=== PATIENT | male | born 1975 | race African-American/Black ===

== ENCOUNTER 2019-08-05 12:52 | Emergency (ER) | payer OTHER ==
[~2019-08-05] VITALS: Ht 190.5 cm; Wt 96.0 kg
--- NOTE | 2019-08-05 13:28 | PHYS DOC ---
Adult General Chief Complaint Chief Complaint: HEADACHE HPI HPI Patient is a 44 year old male who presents to the ER with complaint of posterior head pain on the left side, dizziness, altered sensation around the left eye region. His symptoms initially started on July 23 when he felt a "pop in the back of my head." Since that time he hasn't experienced pain in the back of his head and intermittent dizziness. He was initially seen and evaluated at [facility] where CT scan of his head which was negative and cardiac workup including labs and EKG all of which were unremarkable. His symptoms were continued to possible hypoglycemia as the patient is diabetic. He was discharge and ultimately sent home. He had another episode on August 01 of presumed chest pain according to medical records were he was seen again at [facility] and evaluated and sent home. He saw his primary care physician on Thursday and again on for ongoing abnormal symptoms including pain in the back of his head, intermittent dizziness, weakness in the bilateral lower extremities. He has not seen a neurologist. He denies visual disturbance. 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 Review of Systems Review of Systems All other ROS is negative unless otherwise stated in HPI Current Medications Current Medications Current Medications Medications (Trade) Dose Ordered Sig/Germania Start Time Stop Time Status Last Admin Dose Admin Info (CONTRAST GIVEN -- Rx MONITORING) 1 each PRN DAILY PRN 08/05/19 14:15 08/07/19 14:14 Iohexol (Omnipaque 350 Mg/ml) 75 ml 1X ONCE 08/05/19 14:00 08/05/19 14:02 DC 08/05/19 14:10 75 ML Meclizine HCl (Antivert) 25 mg 1X ONCE 08/05/19 13:30 08/05/19 13:31 DC 08/05/19 14:25 25 MG Sodium Chloride 1,000 ml @ 1,000 mls/hr 1X ONCE 08/05/19 13:30 08/05/19 14:29 DC 08/05/19 14:26 1,000 MLS/HR Allergies Allergies Allergies Coded Allergies Type Severity Reaction Last Updated Verified No Known Drug Allergies 08/05/19 No Physical Exam Physical Exam See above Constitutional: Well developed, well nourished, no acute distress, non-toxic appearance. [] HENT: Normocephalic, atraumatic, bilateral external ears normal, oropharynx moist, no oral exudates, nose normal. [] Eyes: PERRLA, EOMI, conjunctiva normal, no discharge. [] Neck: Normal range of motion, no tenderness, supple, no stridor. [] Cardiovascular:Heart rate regular rhythm, no murmur [] Lungs & Thorax: Bilateral breath sounds clear to auscultation [] Abdomen: Bowel sounds normal, soft, no tenderness, no masses, no pulsatile masses. [] Skin: Warm, dry, no erythema, no rash. [] Back: No tenderness, no CVA tenderness. [] Extremities: No tenderness, no cyanosis, no clubbing, ROM intact, no edema. [] Neurologic: Alert and oriented X 3, normal sensory. No focal neurologic deficits except for left finger to nose is slightly off Psychologic: Affect normal, judgement normal, mood normal. [] Current Patient Data Vital Signs Vital Signs Date Time Temp Pulse Resp B/P (MAP) Pulse Ox O2 Delivery O2 Flow Rate FiO2 08/05/19 13:04 98.2 87 18 143/95 (111) 98 Room Air 98.2 Lab Values Laboratory Tests Test 08/05/19 13:30 08/05/19 15:16 White Blood Count 7.8 x10^3/uL (4.0-11.0) Red Blood Count 6.48 x10^6/uL (4.30-5.70) H Hemoglobin 13.5 g/dL (13.0-17.5) Hematocrit 42.1 % (39.0-53.0) Mean Corpuscular Volume 65 fL (79-100) L Mean Corpuscular Hemoglobin 21 pg (25-35) L Mean Corpuscular Hemoglobin Concent 32 g/dL (31-37) Red Cell Distribution Width 16.7 % (11.5-14.5) H Platelet Count 214 x10^3/uL (140-400) Neutrophils (%) (Auto) 62 % (31-73) Lymphocytes (%) (Auto) 29 % (24-48) Monocytes (%) (Auto) 8 % (0-9) Eosinophils (%) (Auto) 1 % (0-3) Basophils (%) (Auto) 1 % (0-3) Neutrophils # (Auto) 4.8 x10^3/uL (1.8-7.7) Lymphocytes # (Auto) 2.2 x10^3/uL (1.0-4.8) Monocytes # (Auto) 0.6 x10^3/uL (0.0-1.1) Eosinophils # (Auto) 0.0 x10^3/uL (0.0-0.7) Basophils # (Auto) 0.1 x10^3/uL (0.0-0.2) Platelet Estimate Adequate (ADEQUATE) Hypochromasia Marked Poikilocytosis Slight Anisocytosis Slight Microcytosis Marked Ovalocytes Few Sodium Level 139 mmol/L (136-145) Potassium Level 4.3 mmol/L (3.5-5.1) Chloride Level 102 mmol/L (98-107) Carbon Dioxide Level 28 mmol/L (21-32) Anion Gap 9 (6-14) Blood Urea Nitrogen 12 mg/dL (8-26) Creatinine 1.3 mg/dL (0.7-1.3) Estimated GFR (Cockcroft-Gault) 71.9 Glucose Level 122 mg/dL (70-99) H Calcium Level 9.7 mg/dL (8.5-10.1) Troponin I Quantitative < 0.017 ng/mL (0.000-0.055) Thyroid Stimulating Hormone (TSH) 1.259 uIU/mL (0.358-3.74) Urine Opiates Screen Neg (NEG) Urine Methadone Screen Neg (NEG) Urine Barbiturates Neg (NEG) Urine Phencyclidine Screen Neg (NEG) Urine Amphetamine/Methamphetamine Neg (NEG) Urine Benzodiazepines Screen Neg (NEG) Urine Cocaine Screen Neg (NEG) Urine Cannabinoids Screen Neg (NEG) Urine Ethyl Alcohol Neg (NEG) Laboratory Tests 08/05/19 13:30 Laboratory Tests 08/05/19 13:30 EKG EKG [] Radiology/Procedures Radiology/Procedures PROCEDURE: CT ANGIOGRAPHY HEAD AND NECK CLINICAL HISTORY: Posterior head pain and dizziness COMPARISON: CT head 08/02/2019. TECHNIQUE: CT angiogram of the head and neck was performed following the administration of IV contrast Multiplanar reconstructed images were obtained including 3D reconstructed images performed on an independent work station. Stenosis if present in the carotid arteries were measured using NASCET criteria. PQRS compliance statement - One or more of the following individualized dose reduction techniques were utilized for this study: 1. Automated exposure control 2. Adjustment of the mA and/or kV according to patient size 3. Use of iterative reconstruction technique FINDINGS: CTA of the intracranial circulation reveals normal appearing distal internal carotid arteries including the distal cervical, petrous, cavernous and supraclinoid portions. The anterior cerebral arteries are well visualized and without evidence of stenosis or occlusion. The middle cerebral arteries are well visualized and without evidence of stenosis or occlusion. The posterior cerebral arteries are well visualized and without evidence of stenosis or occlusion. The vertebral basilar system is normal with no evidence of stenosis or occlusion. In the neck, the origins of the great vessels are unremarkable. The common carotid arteries, bilaterally are normal with no evidence of significant stenosis or occlusion. The internal carotid arteries are normal bilaterally with no evidence of stenosis. The vertebral arteries in the neck are well visualized bilaterally and unremarkable. A 3.7 x 2.1 cm left thyroid nodule is seen. IMPRESSION: 1. No evidence for high-grade stenosis or occlusion of the intracranial circulation. 2. No evidence for high-grade stenosis or occlusion of the extracranial carotid or vertebral arteries. 3. A 3.7 x 2.1 cm left thyroid nodule seen. Recommend further evaluation with thyroid ultrasound if not previously performed.[] EXAM: MRI Brain without IV contrast INDICATION: Dizziness and posterior head pain. TECHNIQUE: Sagittal and axial T1-w and axial T2-w, FLAIR, GRE, coronal T2-w, and diffusion-w images of the brain with ADC maps without IV contrast. COMPARISON: CT head without IV contrast 07/23/2019 FINDINGS: BRAIN PARENCHYMA: No evidence of hyperacute, acute, or early subacute infarction. Scattered T2 and FLAIR signal hyperintensities in the subcortical white matter of the complete frontal lobes are nonspecific but compatible with chronic ischemic microvascular change. VENTRICLES & EXTRA-AXIAL SPACES: Ventricles are within normal limits. Basilar cisterns are patent. No abnormal extra-axial fluid or mass. VESSELS: Normal signal voids in the larger intracranial vessels. ORBITS: Orbital contents are unremarkable. SINUSES: Paranasal sinuses are clear. Tympanic cavities and mastoid air cells are clear. OSSEOUS & SOFT TISSUES: Marrow signal is within normal limits. IMPRESSION: No acute intracranial pathology. Course & Med Decision Making Course & Med Decision Making Pertinent Labs and Imaging studies reviewed. (See chart for details) This patient is seen for pain in the posterior aspect of his head along with abnormal sensation about the left orbit. He's had a CT scan performed on ebruary 8 and workup 2 on [address] With [address] angiogram of the patient's head and neck and repeat labs today along with EKG. 1459: Patient's CT scan of his head and neck are unremarkable for pathology; however it did reveal thyroid nodule. His labs are unremarkable. I spoke with her neurologist, Dr. Mc who recommends an MRI without contrast and follow up in clinic if unremarkable. 1636: MRI negative. Will d/c with referral to neuro. Patient also informed of thyroid nodule and need to f/u. Dragon Disclaimer Elainaon Disclaimer This electronic medical record was generated, in whole or in part, using a voice recognition dictation system. Departure Departure Impression: Primary Impression: Dizziness Additional Impressions: Headache Thyroid nodule Disposition: HOME, SELF-CARE Condition: STABLE Referrals: ELLE [facility] MD Call for follow up appointment today or Thursday Patient Instructions: Dizziness Scripts Meclizine Hcl (MECLIZINE HCL) 25 Mg Tablet 1 TAB PO TID for dizziness, #20 TAB Prov: IHSAN MCDONALD DO 08/05/19 Prednisone (PREDNISONE) 50 Mg Tablet 1 TAB PO DAILY, #5 TAB Prov: IHSAN MCDONALD DO 08/05/19 NIHSS Stroke Scale NIH Stroke Scale: NIH Stroke Scale Response (Comments) Value Level of Consciousness: 0 Alert/Responsive 0 LOC Questions: 0 Answers both correctly 0 LOC Commands: 0 Performs both tasks 0 Best Gaze: 0 Normal 0 Visual: 0 No visual loss 0 Facial Palsy: 0 Normal, symmetrical 0 Motor - Left Arm 0 No drift 0 Motor - Right Arm 0 No drift 0 Motor - Left Leg 0 No drift 0 Motor: Right Leg 0 No drift 0 Limb Ataxia: 1 One limb (left upper extremity) 1 Sensory: 0 No loss 0 Best Language: 0 Normal 0 Dysathria: 0 Normal 0 Extinction and Inattention: 0 Normal 0 Total 1 Problem Qualifiers IHSAN MCDONALD DO Aug 05, 2019 13:28
[2019-08-05] MEDS ORDERED: MECLIZINE HCL 12.5 MG TABLET. PO ONE (13:30)
[2019-08-05] MEDS ORDERED: IV NORMAL SALINE 1000ML BAG 1,000 ML IV ONE (13:30)
[2019-08-05 13:43] LABS: BASO # 0.1 x10^3/uL (0.0-0.2); BASO % 1 % (0-3); EOS % 1 % (0-3); HEMATOCRIT 42.1 % (39.0-53.0); HEMOGLOBIN 13.5 g/dL (13.0-17.5); LYMPH # 2.2 x10^3/uL (1.0-4.8); LYMPH % 29 % (24-48); MEAN CORPUSCULAR HEMOGLOBIN 21 pg (25-35); MEAN CORPUSCULAR HGB CONC 32 g/dL (31-37); MEAN CORPUSCULAR VOLUME 65 fL (79-100); MONO # 0.6 x10^3/uL (0.0-1.1); MONO % 8 % (0-9); NEUT # 4.8 x10^3/uL (1.8-7.7); NEUT % 62 % (31-73); PLATELET COUNT 214 x10^3/uL (140-400); RED BLOOD COUNT 6.48 x10^6/uL (4.30-5.70); RED CELL DISTRIBUTION WIDTH 16.7 % (11.5-14.5); WHITE BLOOD COUNT 7.8 x10^3/uL (4.0-11.0)
[2019-08-05 13:56] LABS: CALCIUM 9.7 mg/dL (8.5-10.1); CREATININE 1.3 mg/dL (0.7-1.3); GFR 71.9; POTASSIUM 4.3 mmol/L (3.5-5.1)
[2019-08-05] MEDS ORDERED: IOHEXOL 350 MG/ML 100 ML VIAL. IV ONE (14:00)
[2019-08-05] MEDS ORDERED: CONTRAST GIVEN. MC PRN (14:15)
[2019-08-05 14:18] LABS: PLT ESTIMATE ADEQUATE (ADEQUATE)
[2019-08-05 14:19] LABS: ANISOCYTOSIS SLIGHT; HYPOCHROMIA MARKED; MICROCYTOSIS MARKED; OVALOCYTES FEW; POIKILOCYTOSIS SLIGHT
--- NOTE | 2019-08-05 14:43 | RAD ---
CLINICAL HISTORY: Posterior head pain and dizziness COMPARISON: CT head 08/02/2019. TECHNIQUE: CT angiogram of the head and neck was performed following the administration of IV contrast Multiplanar reconstructed images were obtained including 3D reconstructed images performed on an independent work station. Stenosis if present in the carotid arteries were measured using NASCET criteria. PQRS compliance statement - One or more of the following individualized dose reduction techniques were utilized for this study: 1. Automated exposure control 2. Adjustment of the mA and/or kV according to patient size 3. Use of iterative reconstruction technique FINDINGS: CTA of the intracranial circulation reveals normal appearing distal internal carotid arteries including the distal cervical, petrous, cavernous and supraclinoid portions. The anterior cerebral arteries are well visualized and without evidence of stenosis or occlusion. The middle cerebral arteries are well visualized and without evidence of stenosis or occlusion. The posterior cerebral arteries are well visualized and without evidence of stenosis or occlusion. The vertebral basilar system is normal with no evidence of stenosis or occlusion. In the neck, the origins of the great vessels are unremarkable. The common carotid arteries, bilaterally are normal with no evidence of significant stenosis or occlusion. The internal carotid arteries are normal bilaterally with no evidence of stenosis. The vertebral arteries in the neck are well visualized bilaterally and unremarkable. A 3.7 x 2.1 cm left thyroid nodule is seen. IMPRESSION: 1. No evidence for high-grade stenosis or occlusion of the intracranial circulation. 2. No evidence for high-grade stenosis or occlusion of the extracranial carotid or vertebral arteries. 3. A 3.7 x 2.1 cm left thyroid nodule seen. Recommend further evaluation with thyroid ultrasound if not previously performed. Electronically signed by: Pop Viera MD (08/05/2019 2:40 PM) [facility]
[2019-08-05 15:47] LABS: BARBITURATES NEG (NEG); BENZODIAZEPINES NEG (NEG); CANNABINOIDS NEG (NEG); COCAINE NEG (NEG); METHADONE NEG (NEG); OPIATES NEG (NEG); PHENCYCLIDINE NEG (NEG)
[2019-08-05 15:54] LABS: AMPHETAMINE/METHAMPHETAMINE NEG (NEG)
--- NOTE | 2019-08-05 16:08 | EKG ---
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
--- NOTE | 2019-08-05 16:32 | RAD ---
EXAM: MRI Brain without IV contrast INDICATION: Dizziness and posterior head pain. TECHNIQUE: Sagittal and axial T1-w and axial T2-w, FLAIR, GRE, coronal T2-w, and diffusion-w images of the brain with ADC maps without IV contrast. COMPARISON: CT head without IV contrast 07/23/2019 FINDINGS: BRAIN PARENCHYMA: No evidence of hyperacute, acute, or early subacute infarction. Scattered T2 and FLAIR signal hyperintensities in the subcortical white matter of the complete frontal lobes are nonspecific but compatible with chronic ischemic microvascular change. VENTRICLES & EXTRA-AXIAL SPACES: Ventricles are within normal limits. Basilar cisterns are patent. No abnormal extra-axial fluid or mass. VESSELS: Normal signal voids in the larger intracranial vessels. ORBITS: Orbital contents are unremarkable. SINUSES: Paranasal sinuses are clear. Tympanic cavities and mastoid air cells are clear. OSSEOUS & SOFT TISSUES: Marrow signal is within normal limits. IMPRESSION: No acute intracranial pathology. Electronically signed by: Ny Vargas MD (08/05/2019 4:28 PM) [facility]
[2019-08-05] MEDS ORDERED: PRED50TA PO (16:39)
[2019-08-05] MEDS ORDERED: MECL-75 PO (16:39)
[2019-08-05 16:50] VITALS: BP 130/88
== END 2019-08-05 17:01 | disposition home or self-care (01) ==
LOC: ER 12:52
DX: E04.1 Nontoxic single thyroid nodule (principal); R42 Dizziness and giddiness; R51 Headache
CPT/HCPCS: 36415; 70496; 70498; 70551; 80048; 80307; 84439; 84443; 84484; 85025; 93005; 96360; 99285; J7030; J8597; Q9967

== ENCOUNTER → 2019-08-24 | Outpatient (CLI) | payer OTHER ==
[2019-08-05 16:50] VITALS: BP 130/88
[~2019-08-24] MED LIST: MECL-75 PO; PRED50TA PO
--- NOTE | 2019-08-24 10:39 | RAD ---
Examination: US GUID NDL PLACE/ASPI/BX History: Left thyroid nodules Comparison/Correlation: CTA of the neck 08/05/2019 and thyroid ultrasound exam 08/08/2019 Findings: Risks, benefits, and alternatives regarding FNA of 2 left thyroid nodules were discussed with the patient and informed consent was obtained. Cleansing with ChloraPrep at the anticipated site of needle placement was performed. Sterile draping, sterile gel, and sterile probe cover is were utilized. Approximately 10 cc of 1 percent lidocaine was administered subcutaneously and along the expected course of the needle tracks. Lateral approach was utilized. 4 passes with separate syringes were made into the smaller, more superior of the 2 left thyroid nodules. Additional 4 passes into the other larger more inferiorly located left thyroid mass was performed with separate syringes. Specimens were provided to the pathologist present stated that samples for both of the nodules are adequate. The patient tolerated the procedure well without immediate complications. Impression: Successful fine-needle aspiration of the 2 left lower thyroid nodules Electronically signed by: Garrett Caban MD (08/24/2019 10:36 AM) [facility]
--- NOTE | 2019-08-30 14:06 | PATHOLOGY ---
Note [facility] Accession Number: [id number] TESTS RESULT FLAG UNITS REF RANGE LAB Clinician Provided Cytology Information No. of containers..01 Other (Miscellaneous) Source: LEFT MID THYROID DIAGNOSIS: LEFT MID THYROID NEGATIVE FOR MALIGNANT CELLS. BETHESDA CATEGORY II. SPECIMEN CONSISTS OF ABUNDANT BENIGN FOLLICULAR CELLS, HEMOSIDERIN-LADEN MACROPHAGES, SCANT COLLOID AND BLOOD. THE PATTERN IS CONSISTENT WITH ADENOMATOID NODULE. THIS INTERPRETATION INCLUDES EVALUATION OF A CELL BLOCK. Pathologist ICD10: 02 E04.1 Signed out by: 02 Jethro Mejia MD, Pathologist NPI- [id number] Performed by: Heidi Sherman, Crusher ([facility]) Gross description: 01 30ML, CLEAR PINK, 3F 3AD 3HE /LCS 08/24/2019 1839 Local FLAG LEGEND: L-Low Normal,H-High Normal,LL-Alert Low,HH-Alert High <-Panic Low,>-Panic High,A-Abnormal,AA-Critical Abnormal Performed at: [facility] [address] [place] [address] Julian Schultz MD, 02 [facility] [address] [place] [address] Jethro Mejia MD, Specimen Comment: A courtesy copy of this report has been sent to [phone], [phone] Specimen Comment: [id number], Specimen Comment: [id number] Specimen Comment: Report sent to ,DR REN / DR YA Performed at: [address], [place] [id number] MD Julian Schultz MD Phone: [phone]
--- NOTE | 2019-08-31 15:07 | PATHOLOGY ---
Note [facility] Accession Number: [id number] TESTS RESULT FLAG UNITS REF RANGE LAB Clinician Provided Cytology Information No. of containers..01 Other (Miscellaneous) Source: LT THYROID INFERIOR DIAGNOSIS: LT THYROID INFERIOR INCONCLUSIVE. BETHESDA CATEGORY III. INCONCLUSIVE. ABUNDANT CLUSTERS OF FOLLICULAR CELLS WITH MICROFOLLICLES, HEMOSIDERIN- LADEN MACROPHAGES, SCANT COLLOID, AND RED BLOOD CELLS. DIFFERENTIAL DIAGNOSIS INCLUDES ADENOMATOUS NODULE AND FOLLICULAR NEOPLASM. THE CASE IS ALSO EXAMINED BY DR. ZALDIVAR, CYTOPATHOLOGIST, WHO CONCURS WITH THE DIAGNOSIS. THIS INTERPRETATION INCLUDES EVALUATION OF A CELL BLOCK. Pathologist ICD10: 02 R89.6 Signed out by: Jethro Mejia MD, Pathologist NPI- [id number] Performed by: Heidi Sherman, Chief Guard ([facility]) Gross description: 01 30ML, CLEAR RED, 4F 4AD 3HE /LCS 08/24/2019 1842 Local FLAG LEGEND: L-Low Normal,H-High Normal,LL-Alert Low,HH-Alert High <-Panic Low,>-Panic High,A-Abnormal,AA-Critical Abnormal Performed at: [facility] [address] [place] [address] Julian Schultz MD, 02 [facility] [address] [place] [address] Jethro Mejia MD, Specimen Comment: [id number] Performed at: 01 [facility], [place], [place] [id number] MD Julian Schultz MD Phone: [phone]
== END | disposition home or self-care (01) ==
LOC: US 07:57
PROVIDERS: ATTEND Surgery
DX: E04.1 Nontoxic single thyroid nodule (principal); E07.9 Disorder of thyroid, unspecified
CPT/HCPCS: 76942

== ENCOUNTER 2019-10-05 06:24 | Observation (INO) | payer OTHER ==
[~2019-10-05] VITALS: Ht 190.5 cm; Wt 87.1 kg
[~2019-10-05 06:24] MED LIST changes: +ALPR0.254 PO; +ASPI-630 PO; +DICY10CA3 PO; +ESOM40CA PO; +FAMO-63 PO; +LANS30CA PO; +METF500T16 PO; +MULT-121 PO; +SUCR1TAB35 PO
[2019-10-05] MEDS ORDERED: ONDANSETRON PF 4 MG/2 ML VIAL. IVP PRN (07:00)
[2019-10-05] MEDS ORDERED: MORPHINE SULFATE 2 MG/ML VIAL. IVP PRN (07:00)
[2019-10-05] MEDS ORDERED: ONDANSETRON PF 4 MG/2 ML VIAL. IV PRN ×2 (07:00→09:15)
[2019-10-05] MEDS ORDERED: IV RINGERS,LACTATED 1000ML 1,000 ML IV SCH ×2 (07:00)
[2019-10-05] MEDS ORDERED: PROCHLORPERAZINE 10 MG/2 ML VIAL. IVP PRN (07:00)
[2019-10-05] MEDS ORDERED: INSULIN LISPRO 100 UNIT/ML 3ML VIAL for OP,RR ONLY. SQ PRN (07:00)
[2019-10-05] MEDS ORDERED: PROCHLORPERAZINE 10 MG/2 ML VIAL. IV PRN (07:00)
[2019-10-05] MEDS ORDERED: LIDOCAINE 1% PF 2 ML VIAL. ID PRN ×2 (07:00)
[2019-10-05] MEDS ORDERED: ACETAMINOPHEN 500 MG TABLET PO ONE (07:00)
[2019-10-05] MEDS ORDERED: MORPHINE SULFATE 2 MG/ML VIAL. IV PRN ×2 (07:00→09:15)
[2019-10-05] MEDS ORDERED: fentaNYL PF VIAL 100 MCG/2 ML VIAL IV PRN ×2 (07:00)
[2019-10-05] MEDS ORDERED: fentaNYL PF VIAL 100 MCG/2 ML VIAL IVP PRN ×2 (07:00)
[2019-10-05] MEDS ORDERED: HYDROmorphone 2 MG/ML VIAL IV PRN (07:00)
[2019-10-05] MEDS ORDERED: HYDROmorphone 2 MG/ML VIAL IVP PRN (07:00)
[2019-10-05] MEDS ORDERED: PROPOFOL 20 ML IV ONE (07:04)
[2019-10-05] MEDS ORDERED: ONDANSETRON PF 4 MG/2 ML VIAL. ONE (07:05)
[2019-10-05] MEDS ORDERED: SUCCINYLCHOLINE 200 MG/10 ML VIAL. ONE (07:05)
[2019-10-05] MEDS ORDERED: DEXAMETHASONE SOD PHOS 4 MG/ML VIAL ONE (07:05)
[2019-10-05] MEDS ORDERED: LIDOCAINE 2% PF 5 ML VIAL. ONE (07:05)
[2019-10-05] MEDS ORDERED: ROCURONIUM 50 MG/5 ML VIAL. ONE (07:06)
[2019-10-05] MEDS ORDERED: BUPIVACAINE-EPI 0.25%-1:200000 MPF 30 ML VIAL. ONE (07:17)
[2019-10-05] MEDS ORDERED: KETOROLAC 30 MG/ML VIAL. ONE (07:22)
[2019-10-05] MEDS ORDERED: fentaNYL PF VIAL 100 MCG/2 ML VIAL ONE ×2 (07:22→09:43)
[2019-10-05] MEDS ORDERED: MIDAZOLAM HCL/PF 2 MG/2 ML VIAL. ONE (07:23)
--- NOTE | 2019-10-05 07:40 | PDOC1 ---
History and Physical Date of Admission Date of Admission DATE: 10/05/19 TIME: 07:37 Identification/Chief Complaint Chief Complaint Enlarged thyroid Source Source: Patient History of Present Illness History of Present Illness 44-year-old male with a enlarged left thyroid underwent FNA biopsy of Thai to have adenomatous cells but no malignant cells patient does continue to have some difficulty with swallowing. Patient was given the choice of suppression therapy versus a left thyroidectomy he wishes to have a left thyroidectomy. Past Medical History Cardiovascular: No pertinent hx Pulmonary: No pertinent hx GI: No pertinent hx Heme/Onc: No pertinent hx Hepatobiliary: No pertinent hx Psych: No pertinent hx Rheumatologic: No pertinent hx Infectious disease: No pertinent hx ENT: No pertinent hx Renal/: No pertinent hx Endocrine: Diabetes Dermatology: No pertinent hx Past Surgical History Past Surgical History: Other (Thyroid biopsy) Family History Family History: Hypertension Family History: Grandparents Social History Smoke: No ALCOHOL: none Current Medications Current Medications Current Medications Ondansetron HCl (Zofran) 4 mg PRN Q6HRS PRN IVP NAUSEA/VOMITING; Start 10/05/19 at 07:00; Stop 10/06/19 at 06:59 Fentanyl Citrate (Fentanyl 2ml Vial) 25 mcg PRN Q5MIN PRN IVP MILD PAIN 1-3; Start 10/05/19 at 07:00; Stop 10/06/19 at 06:59 Fentanyl Citrate (Fentanyl 2ml Vial) 50 mcg PRN Q5MIN PRN IVP MODERATE TO SEVERE PAIN; Start 10/05/19 at 07:00; Stop 10/06/19 at 06:59 Morphine Sulfate (Morphine Sulfate) 1 mg PRN Q10MIN PRN IVP SEVERE PAIN 7-10; Start 10/05/19 at 07:00; Stop 10/06/19 at 06:59 Ringer's Solution 1,000 ml @ 30 mls/hr Q24H IV Last administered on 10/05/19at 06:52; Start 10/05/19 at 07:00; Stop 10/05/19 at 18:59 Lidocaine HCl (Xylocaine-Mpf 1% 2ml Vial) 2 ml PRN 1X PRN ID IV START; Start 10/05/19 at 07:00; Stop 10/06/19 at 06:59 Hydromorphone HCl (Dilaudid) 0.5 mg PRN Q10MIN PRN IVP SEV PAIN, Second choice; Start 10/05/19 at 07:00; Stop 10/06/19 at 06:59 Prochlorperazine Edisylate (Compazine) 5 mg PACU PRN PRN IVP NAUSEA, MRX1; Start 10/05/19 at 07:00; Stop 10/06/19 at 06:59 Ondansetron HCl (Zofran) 4 mg PRN Q6HRS PRN IV NAUSEA/VOMITING; Start 10/05/19 at 07:00; Stop 10/06/19 at 06:59 Fentanyl Citrate (Fentanyl 2ml Vial) 25 mcg PRN Q5MIN PRN IV MILD PAIN 1-3; Start 10/05/19 at 07:00; Stop 10/06/19 at 06:59 Fentanyl Citrate (Fentanyl 2ml Vial) 50 mcg PRN Q5MIN PRN IV MODERATE TO SEVERE PAIN; Start 10/05/19 at 07:00; Stop 10/06/19 at 06:59 Morphine Sulfate (Morphine Sulfate) 1 mg PRN Q10MIN PRN IV SEVERE PAIN 7-10; Start 10/05/19 at 07:00; Stop 10/06/19 at 06:59 Ringer's Solution 1,000 ml @ 30 mls/hr Q24H IV ; Start 10/05/19 at 07:00; Stop 10/05/19 at 18:59 Lidocaine HCl (Xylocaine-Mpf 1% 2ml Vial) 2 ml PRN 1X PRN ID PRIOR TO IV START; Start 10/05/19 at 07:00; Stop 10/06/19 at 06:59 Hydromorphone HCl (Dilaudid) 0.5 mg PRN Q10MIN PRN IV SEV PAIN, Second choice; Start 10/05/19 at 07:00; Stop 10/06/19 at 06:59 Prochlorperazine Edisylate (Compazine) 5 mg PACU PRN PRN IV NAUSEA, MRX1; Start 10/05/19 at 07:00; Stop 10/06/19 at 06:59 Cefazolin Sodium/ Dextrose 50 ml @ 100 mls/hr 1X PREOP PRN IV PRIOR TO PROCEDURE; Start 10/05/19 at 06:00; Stop 10/05/19 at 18:00 Acetaminophen (Tylenol) 1,000 mg 1X ONCE PO Last administered on 10/05/19at 06:58; Start 10/05/19 at 07:00; Stop 10/05/19 at 07:01; Status DC Insulin Human Lispro (HumaLOG VIAL for OP,RR ONLY) 0-10 units PRN Q1HR PRN SQ PER PROTOCOL; Start 10/05/19 at 07:00; Stop 10/06/19 at 06:59 Propofol 20 ml @ As Directed STK-MED ONCE IV ; Start 10/05/19 at 07:04; Stop 10/05/19 at 07:05; Status DC Lidocaine HCl (Lidocaine Pf 2% Vial) 5 ml STK-MED ONCE .ROUTE ; Start 10/05/19 at 07:05; Stop 10/05/19 at 07:05; Status DC Dexamethasone Sodium Phosphate (Decadron) 4 mg STK-MED ONCE .ROUTE ; Start 10/05/19 at 07:05; Stop 10/05/19 at 07:05; Status DC Ondansetron HCl (Zofran) 4 mg STK-MED ONCE .ROUTE ; Start 10/05/19 at 07:05; Stop 10/05/19 at 07:05; Status DC Succinylcholine Chloride (Anectine) 200 mg STK-MED ONCE .ROUTE ; Start 10/05/19 at 07:05; Stop 10/05/19 at 07:05; Status DC Rocuronium [place] (Zemuron) 50 mg STK-MED ONCE .ROUTE ; Start 10/05/19 at 07:06; Stop 10/05/19 at 07:06; Status DC Bupivacaine HCl/ Epinephrine Bitart (Sensorcaine-Epi 0.25%-1:211637 Mpf) 30 ml STK-MED ONCE .ROUTE ; Start 10/05/19 at 07:17; Stop 10/05/19 at 07:17; Status DC Ketorolac Tromethamine (Toradol 30mg Vial) 30 mg STK-MED ONCE .ROUTE ; Start 10/05/19 at 07:22; Stop 10/05/19 at 07:22; Status DC Fentanyl Citrate (Fentanyl 2ml Vial) 100 mcg STK-MED ONCE .ROUTE ; Start 10/05/19 at 07:22; Stop 10/05/19 at 07:23; Status DC Midazolam HCl (Versed) 2 mg STK-MED ONCE .ROUTE ; Start 10/05/19 at 07:23; Stop 10/05/19 at 07:23; Status DC Active Scripts Active Reported Lansoprazole 30 Mg Capsule.dr 30 Mg PO DAILY Dicyclomine Hcl 10 Mg Capsule 10 Mg PO PRN TID PRN Aspirin 81 Mg Tab.chew 81 Mg PO DAILY Multiple Vitamins (Multivitamin) 1 Each Tablet 1 Each PO DAILY Alprazolam 0.25 Mg Tablet 0.25 Mg PO PRN TID PRN Pepcid (Famotidine) 20 Mg Tablet 10 Mg PO BID Metformin Hcl 500 Mg Tablet 500 Mg PO BIDWMEALS Allergies Allergies: Coded Allergies: No Known Drug Allergies (Unverified , 10/05/19) ROS HEENT: YES: Other (Difficulty with swallowing) Physical Exam General: Alert, Oriented X3, Cooperative, No acute distress HEENT: Atraumatic, PERRLA, EOMI, Other (Large left thyroid gland) Lungs: Clear to auscultation, Normal air movement Heart: RRR, no murmurs Abdomen: Normal bowel sounds, Soft, No tenderness Rectal Exam: not examined Extremities: No edema Skin: No significant lesion Neuro: Normal gait, Normal speech Psych/Mental Status: Mental status NL Vitals Vitals Vital Signs Date Time Temp Pulse Resp B/P (MAP) Pulse Ox O2 Delivery O2 Flow Rate FiO2 10/05/19 06:47 98.7 74 18 120/85 100 Room Air 98.7 VTE Prophylaxis Ordered VTE Prophylaxis Devices: Yes VTE Pharmacological Prophylaxi: Contraindicated Assessment/Plan Assessment/Plan Left thyroid mass adenomatous benign by FNA plan thyroidectomy left side JULIEN YA MD Oct 05, 2019 07:40
[2019-10-05] MEDS ORDERED: REMIFENTANIL 2 MG VIAL. IV ONE (08:04)
[2019-10-05] MEDS ORDERED: PHENYLEPHRINE in 0.9% NACL PF 1 MG/10 ML SYRINGE. IV ONE (08:33)
[2019-10-05] MEDS ORDERED: ceFAZolin 2GM PREMIX 2 GM/50 ML BAG IV ONE (09:00)
--- NOTE | 2019-10-05 09:12 | PDOC4 ---
Operative Note Operative Note Date: 10/05/2019 Preoperative diagnosis: Left thyroid mass Postoperative diagnosis: Same Procedure: Left thyroidectomy Surgeon: Marcin Process Expert: Manjit Specimen: Left thyroid Dictation: Patient is a 44-year-old male who was evaluated for a large neck mass by ultrasound fine-needle aspiration was done which showed a benign adenoma. The patient was complaining of difficulty swallowing and pressure on the left side procedure left thyroidectomy was explained to the patient in detail was benefits were also discussed occluding bleeding infection injury to the recurrent laryngeal nerve with hoarseness also the possibility of cancer within the left thyroid gland on further evaluation by pathologist which would necessitate a completion thyroidectomy. The patient seemed to understand and gave both verbal and written consent to have the procedure performed. Patient was taken to the operating room placed in the supine position general anesthesia was initiated once patient was sleeping in bed his neck was prepped and draped in usual sterile fashion using ChloraPrep area 2 fingerbreadths above the sternal notch neck was injected with quarter percent Marcaine with epinephrine incision was made with 15 blade scalpel is carried down through the subcutaneous tissues using electrocautery right hemostasis to the platysmas muscle flaps were then propagated proximally and distally with blunt and sharp dissection. A [place] retractor was then placed and the strap muscles in the midline were opened with electrocautery exposing the thyroid gland changes returned to the superior pole of the left thyroid. Dissection continued down to the superior vessels these were doubly ligated with 3-0 Vicryl ties and transected with the harmonic scalpel similarly the inferior pole was dissected the mass was then brought up and out of the deep wound and taken off the trachea with the harmonic scalpel and excised from the midline with the harmonic scalpel this was then sent to the pathologist with a stitch in the superior pole of left thyroid. The wound was irrigated and suctioned dry hemostasis deemed to be appropriate and the strap muscles were closed in the midline with a running 3-0 Vicryl the platysma's was reapproximated with 3-0 Vicryl single interrupted sutures and the skin was approximated for subcuticular Monocryl Mastisol Steri-Strips and island dressing were applied. Patient was awakened and extubated in the operating room taken to recovery in stable condition all sponge instrument needle counts listed as correct estimated blood loss 30 mL JULIEN YA MD Oct 05, 2019 09:12
[2019-10-05] MEDS ORDERED: 0.9 % SODIUM CHLORIDE 10 ML DISP.SYRIN. IV PRN (09:15)
[2019-10-05] MEDS ORDERED: oxyCODONE/APAP 5/325 1 TAB TABLET PO PRN ×2 (09:15)
[2019-10-05] MEDS ORDERED: ESOM20CA PO (11:15)
[2019-10-05] MEDS ORDERED: DICYCLOMINE HCL 10 MG CAPSULE PO PRN ×2 (12:15→12:45)
[2019-10-05] MEDS: IV DEXTROSE 5%-LACT RINGERS 1,000 ML IV SCH (12:35)
[2019-10-05] MEDS: KETOROLAC 15 MG/ML VIAL. IV SCH ×3 (12:35→23:29)
[2019-10-05] MEDS ORDERED: FAMOTIDINE 20 MG TABLET. PO SCH ×2 (12:45→21:00)
[2019-10-05] MEDS: LANSOPRAZOLE 30 MG TAB.RAP.DR FT SCH (13:00)
[2019-10-05] MEDS: MULTIVITAMIN with MINERAL TABLET. PO SCH (13:00)
[2019-10-05] MEDS ORDERED: OXYM30SP25 NS (13:01)
[2019-10-05 13:49] VITALS: BP 114/78
[2019-10-05 15:00] VITALS: BP 115/72
[2019-10-05] MEDS: metFORMIN 500 MG TABLET PO SCH (18:07)
[2019-10-05 19:00] VITALS: BP 114/78
[2019-10-05] MEDS: FAMOTIDINE 20 MG TABLET. PO SCH (20:15)
[2019-10-05 23:00] VITALS: BP 102/52
[2019-10-06] MEDS: IV DEXTROSE 5%-LACT RINGERS 1,000 ML IV SCH (01:20)
[2019-10-06 03:00] VITALS: BP 110/75
[2019-10-06] MEDS: KETOROLAC 15 MG/ML VIAL. IV SCH (05:47)
[2019-10-06 07:50] VITALS: BP 119/79
[2019-10-06] MEDS: metFORMIN 500 MG TABLET PO SCH (08:00)
[2019-10-06] MEDS: MULTIVITAMIN with MINERAL TABLET. PO SCH (08:18)
[2019-10-06] MEDS: LANSOPRAZOLE 30 MG TAB.RAP.DR FT SCH (08:18)
[2019-10-06] MEDS: FAMOTIDINE 20 MG TABLET. PO SCH (08:19)
[2019-10-06] MEDS ORDERED: OXYC1TAB15 PO (08:40)
--- NOTE | 2019-10-06 08:44 | DISCH ---
DISCHARGE INSTRUCTIONS Condition on Discharge Condition on Discharge: Stable Activity After Discharge Activity Instructions for Disc: Resume previous activity Bathing Instructions: Shower-keep dressing dry Driving Instructions after Dis: Do not drive (while taking pain meds ) Diet after Discharge Diet after Discharge: GI Soft, Regular Wound Incision Care Wound/Incision Care: Do not change dressing, May get incision wet Contacting the after DC Call your doctor for: Concerns you may have Follow-Up Follow up with: Dr Burch 2 weeks [phone] VANESSA GONZALES MICROBIOLOGY SUPERVISOR Oct 06, 2019 08:44
--- NOTE | 2019-10-06 08:46 | PDOC ---
SURGICAL PROGRESS NOTE Subjective no complaints voice strong tolerating diet Vital Signs Vital Signs Date Time Temp Pulse Resp B/P (MAP) Pulse Ox O2 Delivery O2 Flow Rate FiO2 10/06/19 07:50 98.2 71 18 119/79 (92) 99 Room Air 98.2 10/05/19 10:55 10. I&O Intake and Output 10/06/19 07:00 Intake Total 3000 ml Output Total 30 ml Balance 2970 ml Intake Oral 2300 ml IV Total 700 ml Output Estimated Blood Loss 30 ml # Voids 3 General: Alert, Oriented X3, Cooperative HEENT: Other (incision c/d/i, no erythema) Labs Laboratory Tests Test 10/05/19 09:34 10/05/19 16:08 10/05/19 20:24 10/06/19 07:38 Glucose (Fingerstick) 120 mg/dL (70-99) 170 mg/dL (70-99) 130 mg/dL (70-99) 168 mg/dL (70-99) Laboratory Tests Test 10/05/19 09:34 10/05/19 16:08 10/05/19 20:24 10/06/19 07:38 Glucose (Fingerstick) 120 mg/dL (70-99) 170 mg/dL (70-99) 130 mg/dL (70-99) 168 mg/dL (70-99) Assessment/Plan s/p left thyroidectomy ok to hi home FU 2 weeks VANESSA GONZALES INFORMATION DIRECTOR Oct 06, 2019 08:46
[2019-10-06] MEDS ORDERED: NON FORMULARY ITEM (Esomeprazole Magnesium (Nexium Capsule) 1 CAP) PO SCH (09:00)
--- NOTE | 2019-10-06 10:30 | NUR ---
reviewed discharge instructions regarding follow up, incisional care, restrictions to activities of daily living and new medications. script given. saline lock removed
--- NOTE | 2019-10-06 10:33 | NUR ---
SW following. Chart reviewed, pt from home, surgery yesterday, room air, ADA diet. Discharge order for home with self care. No further SW needs.
--- NOTE | 2019-10-06 10:57 | NUR ---
dismissed to home with discharge paperwork
--- NOTE | 2019-10-06 15:26 | PDOC3 ---
Discharge Summary Visit Information Date of Admission: Oct 05, 2019 Date of Discharge: Oct 06, 2019 Admitting Diagnosis Comment: Left thyroid mass Final Diagnosis Left thyroid mass Brief Hospital Course Allergies Allergies Coded Allergies Type Severity Reaction Last Updated Verified No Known Drug Allergies 10/05/19 No Vital Signs Vital Signs Date Time Temp Pulse Resp B/P (MAP) Pulse Ox O2 Delivery O2 Flow Rate FiO2 10/06/19 08:00 Room Air 10/06/19 07:50 98.2 71 18 119/79 (92) 99 98.2 10/05/19 10:55 10. Lab Results Laboratory Tests Test 10/05/19 09:34 10/05/19 16:08 10/05/19 20:24 10/06/19 07:38 Glucose (Fingerstick) 120 mg/dL (70-99) 170 mg/dL (70-99) 130 mg/dL (70-99) 168 mg/dL (70-99) Laboratory Tests Test 10/05/19 16:08 10/05/19 20:24 10/06/19 07:38 Glucose (Fingerstick) 170 mg/dL (70-99) 130 mg/dL (70-99) 168 mg/dL (70-99) Brief Hospital Course Mr. José is a 44 old male who underwent left thyroidectomy. Postoperatively tolerating diet, voice strong, and pain managed Discharge Information Condition at Discharge: Stable Follow Up: Weeks (2) Disposition/Orders: D/C to Home Scheduled Aspirin (Aspirin) 81 Mg Tab.chew, 81 MG PO DAILY for BLOOD THINNER, (Reported) Entered as Reported by: ZOE SALES on 09/07/191527 Last Taken: Unknown Dose on 10/04/19 Last Action: Reviewed on 10/05/191114 by BRITTANY GRANT Esomeprazole Magnesium (Nexium Capsule) 20 Mg Capsule.dr, 1 CAP PO DAILY for GERD, #30 Ref 2 (Reported) Entered as Reported by: BRITTANY GRANT on 10/05/191114 Last Action: Converted on 10/05/19 1207 by BRITTANY GRANT Famotidine (Pepcid) 20 Mg Tablet, 10 MG PO BID for GERD, (Reported) Entered as Reported by: ZOE SALES on 09/07/191527 Last Taken: Unknown Dose on 10/04/19 Last Action: Continued on 10/05/19 1207 by BRITTANY GRANT Metformin Hcl (Metformin Hcl) 500 Mg Tablet, 500 MG PO BIDWMEALS for ANTI- DIABETIC, Ref 0 (Reported) Entered as Reported by: ZOE SALES on 09/07/191527 Last Taken: Unknown Dose on 10/04/19 Last Action: Continued on 10/05/19 1207 by BRITTANY GRANT Multivitamin (Multiple Vitamins) 1 Each Tablet, 1 EACH PO DAILY for SUPPLEMENT, (Reported) Entered as Reported by: ZOE SALES on 09/07/191527 Last Taken: Unknown Dose on 10/01/19 Last Action: Converted on 10/05/191206 by BRITTANY GRANT Scheduled PRN Dicyclomine Hcl (Dicyclomine Hcl) 10 Mg Capsule, 10 MG PO PRN TID PRN for STOMACH PAIN/SPASM, (Reported) Entered as Reported by: ZOE SALES on 09/30/19 134 Last Taken: Unknown Dose on 10/04/19 Last Action: Continued on 10/05/191206 by BRITTANY GRANT Oxycodone/Apap 5-325 (Percocet 5-325 Mg Tablet ) 1 Each Tablet, 1 TAB PO PRN Q4HRS PRN for MILD PAIN, 1ST CHOICE, #30 Ref 0 Prescribed by: Vanessa Ray on 10/06/19 0840 Oxymetazoline Hcl (Afrin) 30 Ml [place], 30 ML NS PRN DAILY PRN for ALLERGIES, (Reported) Entered as Reported by: BRITTANY GRANT on 10/05/19 1301 Last Action: New Order on 10/05/19 1301 by BRITTANY GRANT Discontinued Medications Esomeprazole Magnesium (Nexium Capsule) 40 Mg Capsule.dr, 40 MG PO DAILYAC for TREAT GERD, #30 Ref 0 (Reported) Entered as Reported by: ZOE SALES on 09/07/191527 Last Action: Discontinued on 09/30/19 134 by ZOE SALES Sucralfate (Carafate) 1 Gm Tablet, 1 GM PO DAILY for GERD, (Reported) Entered as Reported by: ZOE SALES on 09/07/191527 Last Action: Discontinued on 09/30/19 1341 by VANESSA RIGGINS SCANNING TECH Oct 06, 2019 15:26
--- NOTE | 2019-10-07 17:06 | PATHOLOGY ---
[facility] Accession Number: [id number] . 01 Material submitted: . thyroid gland - LEFT THYROID. Modifiers: left . 01 Clinical history: . Thyroid adenoma . 02 Diagnosis: Thyroid "left lobe", lobectomy: - Adenomatoid nodule. - Negative for malignancy. (MLK:rashad; 10/07/2019) MBR 10/07/2019 1609 Local . 02 Electronically signed: . Todd Kim MD, Pathologist NPI- [id number] . 01 Gross description: . The specimen is received in formalin, labeled "Christiano Joés, left thyroid, stitch barrett left superior lobe". Received is a 33 g thyroid lobe measuring 6.3 x 4.5 x 2.8 cm in greatest dimensions with a suture designating the superior pole. The capsule is has a focally rough appearance. The specimen is inked as follows: Anterior-blue, posterior- black. Sectioning reveals a well-demarcated pink-kirk[place], glistening and cysti cappearing nodule measuring 3.3 x 3.2 x 2.1 cm in greatest dimensions, which grossly approaches the posterior aspect. The nodule encompasses approximately 60% of the lobe. The remainder of the specimen is comprised of normal red-brown thyroid parenchyma. The specimen is submitted representatively as follows: . A1-A5 alternating sections of nodule submitted from superior to inferior aspects A6 uninvolved parenchyma. ([facility]; 10/05/2019) QAC/QAC 10/07/2019 1621 Local . 02 Pathologist provided ICD-10: E04.1 . 02 CPT . 613834 Specimen Comment: A courtesy copy of this report has been sent to [phone], [phone] Specimen Comment: [id number] Specimen Comment: Report sent to ,DR YA / DR ZAVALA Performed at: 01 [facility] [address] [id number] MD Julian Schultz MD Phone: [phone] Performed at: 02 [facility] [address] [id number] MD Roman Jameson MD Phone: [phone]
== END 2019-10-06 11:00 | disposition home or self-care (01) ==
LOC: SURG 06:24 → 4 NORTH 09:13
PROVIDERS: ADMIT Surgery; ATTEND Surgery
DX: E04.9 Nontoxic goiter, unspecified (principal); E11.9 Type 2 diabetes mellitus without complications; Z79.4 Long term (current) use of insulin; Z79.82 Long term (current) use of aspirin
CPT/HCPCS: 60210; 82962; 96374; 96376; A7015; G0378; G0379; J0330; J0696; J1100; J1885; J2250; J2370; J2405; J2704; J3010; J3490; J7120; J7121; A4461

== ENCOUNTER 2019-11-02 17:10 | Emergency (ER) | payer OTHER ==
[~2019-11-02] VITALS: Ht 190.5 cm; Wt 86.0 kg
[~2019-11-02 17:10] MED LIST changes: +ESOM20CA PO; +OXYC1TAB15 PO; +OXYM30SP25 NS
[2019-11-02 18:02] LABS: BILIRUBIN,URINE NEGATIVE (NEG); CLARITY,URINE CLEAR; COLOR,URINE YELLOW; NITRITE,URINE NEGATIVE (NEG); PH,URINE 7.5 (<5.0-8.0); PROTEIN,URINE NEGATIVE (NEG-TRACE); UROBILINOGEN,URINE 0.2 mg/dL (0.2 mg/dL)
[2019-11-02 18:03] LABS: BASO % 0 % (0-3); EOS # 0.1 x10^3/uL (0.0-0.7); EOS % 1 % (0-3); HEMATOCRIT 41.3 % (39.0-53.0); HEMOGLOBIN 13.6 g/dL (13.0-17.5); LYMPH # 2.7 x10^3/uL (1.0-4.8); LYMPH % 39 % (24-48); MEAN CORPUSCULAR HEMOGLOBIN 22 pg (25-35); MEAN CORPUSCULAR HGB CONC 33 g/dL (31-37); MEAN CORPUSCULAR VOLUME 65 fL (79-100); MONO # 0.6 x10^3/uL (0.0-1.1); MONO % 9 % (0-9); NEUT # 3.4 x10^3/uL (1.8-7.7); NEUT % 51 % (31-73); PLATELET COUNT 227 x10^3/uL (140-400); RED BLOOD COUNT 6.32 x10^6/uL (4.30-5.70); RED CELL DISTRIBUTION WIDTH 16.1 % (11.5-14.5); WHITE BLOOD COUNT 6.8 x10^3/uL (4.0-11.0)
[2019-11-02 18:07] LABS: BACTERIA,URINE 0 /HPF (0-FEW); RBC,URINE 0 /HPF (0-2); SQUAMOUS EPITHELIAL CELL,UR FEW /LPF; WBC,URINE OCC /HPF (0-4)
[2019-11-02 18:10] LABS: BARBITURATES NEG (NEG); BENZODIAZEPINES NEG (NEG); CANNABINOIDS NEG (NEG); COCAINE NEG (NEG); METHADONE NEG (NEG); OPIATES NEG (NEG); PHENCYCLIDINE NEG (NEG); PROTHROMBIN TIME PATIENT 13.1 SEC (11.7-14.0)
[2019-11-02 18:11] LABS: AMPHETAMINE/METHAMPHETAMINE NEG (NEG)
[2019-11-02 18:15] LABS: ANION GAP 12 (6-14); BLOOD UREA NITROGEN 6 mg/dL (8-26); BUN/CREATININE RATIO 5 (6-20); CALCIUM 9.4 mg/dL (8.5-10.1); CARBON DIOXIDE 26 mmol/L (21-32); CHLORIDE 102 mmol/L (98-107); CREATININE 1.3 mg/dL (0.7-1.3); GFR 71.9; GLUCOSE 116 mg/dL (70-99); POTASSIUM 3.7 mmol/L (3.5-5.1); SODIUM 140 mmol/L (136-145)
--- NOTE | 2019-11-02 18:29 | RAD ---
Exam: Chest one view INDICATION: Palpitations TECHNIQUE: Frontal view of the chest Comparisons: None FINDINGS: The cardiomediastinal silhouette and pulmonary vessels are within normal limits. The lung and pleural spaces are clear. IMPRESSION: No acute cardiopulmonary process. Electronically signed by: Medardo Altman MD (11/02/2019 6:26 PM) [id number]
[2019-11-02 18:30] LABS: CREATINE KINASE 134 U/L (39-308)
[2019-11-02 18:33] LABS: ALBUMIN 4.2 g/dL (3.4-5.0); ALBUMIN/GLOBULIN RATIO 1.2 (1.0-1.7); ALK PHOS 94 U/L (46-116); ALT (SGPT) 30 U/L (16-63); AST (SGOT) 15 U/L (15-37); C-REACTIVE PROTEIN < 0.5 mg/L (0-3.3); MAGNESIUM 1.8 mg/dL (1.8-2.4); TOTAL BILIRUBIN 0.4 mg/dL (0.2-1.0); TOTAL PROTEIN 7.7 g/dL (6.4-8.2)
[2019-11-02 18:41] LABS: HYPOCHROMIA MOD; MICROCYTOSIS MARKED; OVALOCYTES FEW; PLT ESTIMATE ADEQUATE (ADEQUATE); SCHISTOCYTES OCC
[2019-11-02 18:42] LABS: BIZZARE CELLS OCC
[2019-11-02 19:25] VITALS: BP 125/83
--- NOTE | 2019-11-02 19:25 | PHYS DOC ---
Past Medical History Past Medical History: Diabetes-Type II, GERD, IBS Additional Past Surgical Histo: thyroid nodule removed Smoking Status: Former Smoker Alcohol Use: None General Adult EDM: Chief Complaint: Palpitations HPI: HPI: Patient is a 44 year old male with a history of diabetes type 2, acid reflux, IBS, thyroidectomy, who presents the ED today with multiple complaints. Patient reports today he had a tooth extracted, he went home and took an aspirin for pain. He states the pain is well controlled. He states somehow during this afternoon he developed a weird sensation that made him feel like his heart was pumping faster than normal. He states he felt he had things crawling throughout him. Patient reports he has had similar feelings before. He states he was seen at [facility] recently for similar complaints. He states they tested him for COVID19 which was negative. Denies any fever coughing or congestion. Denies any chest pain or shortness of breath. Review of Systems: Review of Systems: Constitutional: Denies fever or chills. [] Eyes: Denies change in visual acuity. [] HENT: Denies nasal congestion or sore throat. [] Respiratory: Denies cough or shortness of breath. [] Cardiovascular: Reports palpitations GI: Denies abdominal pain, nausea, vomiting, bloody stools or diarrhea. [] : Denies dysuria. [] Musculoskeletal: Denies back pain or joint pain. [] Integument: Denies rash. [] Neurologic: Denies headache, focal weakness or sensory changes. [] Endocrine: Denies polyuria or polydipsia. [] Lymphatic: Denies swollen glands. [] Psychiatric: Reports things crawling throughout his body Heart Score: Risk Factors: Risk Factors: DM, Current or recent (<one month) smoker, HTN, HLP, family history of CAD, obesity. Risk Scores: Score 0 - 3: 2.5% MACE over next 6 weeks - Discharge Home Score 4 - 6: 20.3% MACE over next 6 weeks - Admit for Clinical Observation Score 7 - 10: 72.7% MACE over next 6 weeks - Early Invasive Strategies Allergies: Allergies: Allergies Coded Allergies Type Severity Reaction Last Updated Verified No Known Drug Allergies 10/05/19 No Physical Exam: PE: Constitutional: Well developed, well nourished, no acute distress, non-toxic ap pearance. [] HENT: Normocephalic, atraumatic, bilateral external ears normal, oropharynx moist, no oral exudates, nose normal. right lower premolar is missing. Bleeding is controlled from extraction. Eyes: PERRLA, EOMI, conjunctiva normal, no discharge. [] Neck: Normal range of motion, no tenderness, supple, no stridor. [] Cardiovascular:Heart rate regular rhythm, no murmur [] Lungs & Thorax: Bilateral breath sounds clear to auscultation [] Abdomen: Bowel sounds normal, soft, no tenderness, no masses, no pulsatile masses. [] Skin: Warm, dry, no erythema, no rash. [] Back: No tenderness, no CVA tenderness. [] Extremities: No tenderness, no cyanosis, no clubbing, ROM intact, no edema. [] Neurologic: Alert and oriented X 3, normal motor function, normal sensory function, no focal deficits noted. Cranial nerves II through XII intact Psychologic: Appears anxious. Current Patient Data: Labs: Laboratory Tests Test 11/02/19 17:50 White Blood Count 6.8 x10^3/uL (4.0-11.0) Red Blood Count 6.32 x10^6/uL (4.30-5.70) H Hemoglobin 13.6 g/dL (13.0-17.5) Hematocrit 41.3 % (39.0-53.0) Mean Corpuscular Volume 65 fL (79-100) L Mean Corpuscular Hemoglobin 22 pg (25-35) L Mean Corpuscular Hemoglobin Concent 33 g/dL (31-37) Red Cell Distribution Width 16.1 % (11.5-14.5) H Platelet Count 227 x10^3/uL (140-400) Neutrophils (%) (Auto) 51 % (31-73) Lymphocytes (%) (Auto) 39 % (24-48) Monocytes (%) (Auto) 9 % (0-9) Eosinophils (%) (Auto) 1 % (0-3) Basophils (%) (Auto) 0 % (0-3) Neutrophils # (Auto) 3.4 x10^3/uL (1.8-7.7) Lymphocytes # (Auto) 2.7 x10^3/uL (1.0-4.8) Monocytes # (Auto) 0.6 x10^3/uL (0.0-1.1) Eosinophils # (Auto) 0.1 x10^3/uL (0.0-0.7) Basophils # (Auto) 0.0 x10^3/uL (0.0-0.2) Platelet Estimate Adequate (ADEQUATE) Hypochromasia Mod Microcytosis Marked Ovalocytes Few Schistocytes Occ RBC Morphology Bizarre Forms Occ Prothrombin Time 13.1 SEC (11.7-14.0) Prothrombin Time INR 1.0 (0.8-1.1) Urine Collection Type Unknown Urine Color Yellow Urine Clarity Clear Urine pH 7.5 (<5.0-8.0) Urine Specific [place] 1.010 (1.000-1.030) Urine Protein Negative mg/dL (NEG-TRACE) Urine Glucose (UA) Negative mg/dL (NEG) Urine Ketones (Stick) Negative mg/dL (NEG) Urine Blood Negative (NEG) Urine Nitrite Negative (NEG) Urine Bilirubin Negative (NEG) Urine Urobilinogen Dipstick 0.2 mg/dL (0.2 mg/dL) Urine Leukocyte Esterase Negative (NEG) Urine RBC 0 /HPF (0-2) Urine WBC Occ /HPF (0-4) Urine Squamous Epithelial Cells Few /LPF Urine Bacteria 0 /HPF (0-FEW) Sodium Level 140 mmol/L (136-145) Potassium Level 3.7 mmol/L (3.5-5.1) Chloride Level 102 mmol/L (98-107) Carbon Dioxide Level 26 mmol/L (21-32) Anion Gap 12 (6-14) Blood Urea Nitrogen 6 mg/dL (8-26) L Creatinine 1.3 mg/dL (0.7-1.3) Estimated GFR (Cockcroft-Gault) 71.9 BUN/Creatinine Ratio 5 (6-20) L Glucose Level 116 mg/dL (70-99) H Calcium Level 9.4 mg/dL (8.5-10.1) Magnesium Level 1.8 mg/dL (1.8-2.4) Ferritin 61 ng/mL (26-388) Total Bilirubin 0.4 mg/dL (0.2-1.0) Aspartate Amino Transferase (AST) 15 U/L (15-37) Alanine Aminotransferase (ALT) 30 U/L (16-63) Alkaline Phosphatase 94 U/L (46-116) Creatine Kinase 134 U/L (39-308) Creatine Kinase MB (Mass) < 0.5 ng/mL (0.0-3.6) Creatine Kinase MB Relative Index % (0-4) Troponin I Quantitative < 0.017 ng/mL (0.000-0.055) C-Reactive Protein, Quantitative < 0.5 mg/L (0-3.3) PT-Ixc-Q-Type Natriuretic Peptide 5 pg/mL (0-124) Total Protein 7.7 g/dL (6.4-8.2) Albumin 4.2 g/dL (3.4-5.0) Albumin/Globulin Ratio 1.2 (1.0-1.7) Thyroid Stimulating Hormone (TSH) 1.224 uIU/mL (0.358-3.74) Urine Opiates Screen Neg (NEG) Urine Methadone Screen Neg (NEG) Urine Barbiturates Neg (NEG) Urine Phencyclidine Screen Neg (NEG) Urine Amphetamine/Methamphetamine Neg (NEG) Urine Benzodiazepines Screen Neg (NEG) Urine Cocaine Screen Neg (NEG) Urine Cannabinoids Screen Neg (NEG) Ethyl Alcohol Level < 10 mg/dL (0-10) Urine Ethyl Alcohol Neg (NEG) Laboratory Tests 11/02/19 17:50 Laboratory Tests 11/02/19 17:50 Vital Signs: Vital Signs Date Time Temp Pulse Resp B/P (MAP) Pulse Ox O2 Delivery O2 Flow Rate FiO2 11/02/19 18:18 70 118/86 (97) 97 11/02/19 17:18 98.6 16 Room Air 98.6 EKG: EKG: [] Radiology/Procedures: Radiology/Procedures: []PROCEDURE: PORTABLE CHEST 1V Exam: Chest one view INDICATION: Palpitations TECHNIQUE: Frontal view of the chest Comparisons: None FINDINGS: The cardiomediastinal silhouette and pulmonary vessels are within normal limits. The lung and pleural spaces are clear. IMPRESSION: No acute cardiopulmonary process. Electronically signed by: Medardo Fuentes MD (11/02/2019 6:26 PM) [id number] DICTATED and SIGNED BY: MEDARDO FUENTES MD DATE: 11/02/191825 Course & Med Decision Making: Course & Med Decision Making Pertinent Labs and Imaging studies reviewed. (See chart for details) This is a 44-year-old male patient presenting to the ED today with multiple complaints. Patient reports having a tooth extracted today, taking an aspirin and later on having a sensation of things crawling throughout his body. He has had similar symptoms before and was seen at [facility] where his work up was negative. He is also complaining of palpitations. EKG is negative, he was put on a monitor, no palpitations were noted, labs are negative. Reassured and discharged to home. We discussed possibility of anxiety being the source of his symptoms considering, has PCP recommended f/u in the course of this week. Also provided cardiology for F/u Dragon Disclaimer: Yamel Disclaimer: This electronic medical record was generated, in whole or in part, using a voice recognition dictation system. Departure Departure Impression: Primary Impression: Palpitations Additional Impression: Anxiety Disposition: 01 HOME, SELF-CARE Condition: STABLE Referrals: VISHNU REN MD (PCP) follow up in the course of this week SUNNY ESCOBEDO MD follow up in the course of this week Patient Instructions: Palpitations, [id number] Additional Instructions: Your work-up in the emergency room is negative. Please contact the provided chore worker and set up a follow-up appointment as an outpatient. Consider seeing your primary care doctor in the course of this week as well. GILMAR BRUMFIELD APRN November 02, 2019 19:25
--- NOTE | 2019-11-03 06:45 | EKG ---
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
== END 2019-11-02 19:35 | disposition home or self-care (01) ==
LOC: ER 17:10
DX: R00.2 Palpitations (principal); F41.9 Anxiety disorder, unspecified; E11.9 Type 2 diabetes mellitus without complications; K21.9 Gastro-esophageal reflux disease without esophagitis; K58.9 Irritable bowel syndrome, unspecified; Z98.890 Other specified postprocedural states; Z87.891 Personal history of nicotine dependence
CPT/HCPCS: 36415; 71045; 80053; 80307; 81001; 82553; 82728; 83735; 83880; 84443; 84484; 85025; 85610; 86140; 93005; 99285; G0480